=== PATIENT | female | born 1960 | race Caucasian/White ===

== ENCOUNTER 2016-10-31 15:48 | Outpatient (CLI) | payer OTHER ==
--- NOTE | 2016-10-31 18:13 | DIAGNOSTIC IMAGING REPORT ---
PROCEDURE: CT ABDOMEN/PELVIS W/O CONTRAST INDICATION: Hematuria. Right and left pain. TECHNIQUE: Noncontrast axial images with sagittal and coronal reformations. COMPARISON: Comparison is made to abdominal ultrasound (09/07/2015) CT abdomen and pelvis (12/06/2010). FINDINGS: ABDOMEN: There are four to five nonobstructing right renal calculi and (1-5 mm). Right kidney (11.3 cm) and ureter are otherwise normal. There are four nonobstructing left renal calculi (0.5 - 6 mm). Left kidney (11.3 cm) and left ureter are otherwise normal Gallbladder is partially contracted (moderate ingested material in the stomach). Liver, spleen, pancreas, and aorta (moderate calcified atheromatous changes) are normal. Surgical clips in right lower quadrant suggest interim cholecystectomy. PELVIS: Status post hysterectomy. Interval resolution or resection of left ovarian cyst. Status post partial sigmoid colectomy. Mild sigmoid diverticulosis. IMPRESSION: 1. There are four to five nonobstructing right renal calculi (1- 5 mm). 2. There are four nonobstructing left renal calculi (0.5 - 6 mm). 3. Status post appendectomy and partial sigmoid colectomy. 4. Status post hysterectomy. 5. Interval resolution of left ovarian cystic mass (resolution versus excision). All CT scans at this facility use dose modulation, iterative reconstruction, and/or weight-based dosing when appropriate to reduce radiation dose to as low as reasonably achievable.
== END 2016-10-31 23:00 ==
LOC: CT SRH 15:48
DX: N20.0 Calculus of kidney (principal)

== ENCOUNTER 2016-12-05 15:50 | Outpatient (CLI) | payer OTHER ==
--- NOTE | 2016-12-05 16:33 | DIAGNOSTIC IMAGING REPORT ---
PROCEDURE: XR ABDOMEN 1 VIEW INDICATION: KIDNEY STONE TECHNIQUE: AP supine and upright views. COMPARISON: Abdominal CT dated 10/31/2016 FINDINGS: There is a 2 mm stone visible over the lower pole of the right kidney. There is a 3 mm elongated stone just to the right of L3. And a 2 mm stone is projected just to the left of the L3 vertebral body. IMPRESSION: 1. Three visible renal stones.
== END 2016-12-05 23:00 ==
LOC: XR SRH 15:50
DX: N20.0 Calculus of kidney (principal)